=== PATIENT | female | born 1965 ===

== ENCOUNTER 2021-07-16 08:30 | Day surgery (SDC) | payer OTHER | END 2021-07-16 14:06 | disposition home or self-care (01) | LOC: AMB-ENDOS 08:30 | PROVIDERS: ATTEND Colon & Rectal Surgery | DX: D12.5 Benign neoplasm of sigmoid colon (principal); K64.8 Other hemorrhoids; Z20.822 Contact with and (suspected) exposure to COVID-19 ==